=== PATIENT | female | born 1990 | race Hispanic/Latino ===

== ENCOUNTER 2024-02-28 18:10 | Emergency (ER) | payer MEDICAID ==
[~2024-02-28] VITALS: Ht 157.5 cm; Wt 71.7 kg
[2024-02-28 18:57] LABS: BASOPHILS # (AUTO) 0.07 K/uL (0.00-0.20); BASOPHILS % (AUTO) 0.5 % (0.0-5.0); EOSINOPHILS # (AUTO) 0.02 K/uL (0.00-0.70); EOSINOPHILS % (AUTO) 0.1 % (0.0-8.0); HEMATOCRIT 37.6 % (36-48); IMMATURE GRANULOCYTE ABSOLUTE 0.04 K/uL (0-1); LYMPHOCYTES # (AUTO) 1.1 K/uL (1.0-4.8); LYMPHOCYTES % (AUTO) 7.6 % (21.0-51.0); MEAN CORPUSCULAR HEMOGLOBIN 30.3 pg (27.0-33.0); MEAN CORPUSCULAR HGB CONC 34.3 g/dL (32.0-36.0); MEAN CORPUSCULAR VOLUME 88.3 fL (79-99); MONOCYTES # (AUTO) 0.7 K/uL (0.1-1.0); MONOCYTES % (AUTO) 5.3 % (3.0-13.0); NEUTROPHILS # (AUTO) 11.9 K/uL (1.8-7.7); NEUTROPHILS % (AUTO) 86.2 % (40.0-77.0); PLATELET COUNT (AUTO) 213 K/uL (130-400); RED BLOOD CELL COUNT(AUTO) 4.26 MIL/uL (4.00-5.50); RED CELL DISTRIBUTION WIDTH 11.9 % (11.0-15.5); WHITE BLOOD COUNT (AUTO) 13.9 K/uL (4.8-10.8)
[2024-02-28 19:07] LABS: CARBON DIOXIDE 25 mmol/L (21-32); CHLORIDE 104 mmol/L (101-111); CREATININE 0.7 mg/dL (0.5-1.0); GLOMERULAR FILTR. RATE CALC 119 mL/min (>90); GLUCOSE,RANDOM 99 mg/dL (70-105); POTASSIUM 3.7 mmol/L (3.5-5.1); SODIUM SERUM 139 mmol/L (136-145); UREA NITROGEN, BLOOD 9 mg/dL (7-18)
[2024-02-28 19:09] LABS: ALCOHOL, BLOOD < 3 mg/dL (0-10)
[2024-02-28] MEDS: LORAZEPAM 1 MG TABLET PO ONE (19:28)
[2024-02-28 19:29] LABS: INR 1.02 (0.85-1.15)
[2024-02-28 19:31] LABS: PARTIAL THROMBOPLASTIN TIME 24.5 SEC (26.3-35.5)
[2024-02-28 20:19] LABS: ADD UA MICROSCOPIC YES; APPEARANCE,URINE CLEAR (CLEAR); BILIRUBIN,URINE NEGATIVE (NEGATIVE); COLOR,URINE COLORLESS (YELLOW); GLUCOSE, URINE (UA) NEGATIVE (NEGATIVE); KETONES,URINE 10 mg/dL (NEGATIVE); LEUKOCYTE ESTERASE ,URINE NEGATIVE Leu/uL (NEGATIVE); NITRATE,URINE NEGATIVE (NEGATIVE); OCCULT BLOOD,URINE NEGATIVE (NEGATIVE); PH,URINE 6.5 (5.0-8.0); PROTEIN,URINE NEGATIVE (NEGATIVE); UROBILINOGEN,URINE 0.2 mg/dL (0.2-1.0)
[2024-02-28 20:21] LABS: BACTERIA,URINE RARE /HPF (None Seen); RBC,URINE 0-1 /HPF (0-1); SQUAMOUS EPITHELIAL CELL,UR FEW /HPF (0-2); WBC,URINE 0-1 /HPF (0-1)
[2024-02-28 20:29] LABS: AMPHET/METH SCREEN,URINE NEGATIVE (NEGATIVE); BARBITURATE SCREEN, URINE NEGATIVE (NEGATIVE); BENZODIAZEPINES SCREEN,URINE NEGATIVE (NEGATIVE); CANNABINOID SCREEN,URINE POSITIVE (NEGATIVE); COCAINE SCREEN,URINE NEGATIVE (NEGATIVE); OPIATE SCREEN,URINE NEGATIVE (NEGATIVE); PHENCYCLIDINE SCREEN,URINE NEGATIVE (NEGATIVE)
[2024-02-28] MEDS ORDERED: IOHEXOL 350 MG/ML 100ML INFUS..BTL IV ONE (20:44)
[2024-02-28 22:00] VITALS: BP 121/65; PULSE 81; RESP 18; O2SAT 99
== END 2024-02-28 22:02 | disposition home or self-care (01) ==
LOC: EEVIPCON 18:10 → EDH 18:10
DX: S80.11XA Contusion of right lower leg, initial encounter (principal); S10.93XA Contusion of unspecified part of neck, initial encounter; S20.219A Contusion of unspecified front wall of thorax, initial encounter; F32.A Depression, unspecified; E66.9 Obesity, unspecified; Z68.30 Body mass index [BMI] 30.0-30.9, adult; Y04.2XXA Assault by strike against or bumped into by another person, initial encounter; Y93.89 Activity, other specified; Y92.89 Other specified places as the place of occurrence of the external cause; Y99.8 Other external cause status
CPT/HCPCS: 99285; 70450; 84443; 80048; 80305; 84703; 85025; 85610; 85730; 36415; 73522; 70486; 70491; 93005; 81001; Q9967

== ENCOUNTER 2024-11-17 19:14 | Emergency (ER) | payer SELFPAY ==
[~2024-11-17] VITALS: Ht 157.5 cm; Wt 75.7 kg
[2024-11-17 19:44] LABS: APPEARANCE,URINE CLEAR (CLEAR); BILIRUBIN,URINE NEGATIVE (NEGATIVE); COLOR,URINE COLORLESS (YELLOW); GLUCOSE, URINE (UA) NEGATIVE (NEGATIVE); KETONES,URINE NEGATIVE (NEGATIVE); LEUKOCYTE ESTERASE ,URINE NEGATIVE Leu/uL (NEGATIVE); NITRATE,URINE NEGATIVE (NEGATIVE); OCCULT BLOOD,URINE SMALL (NEGATIVE); PROTEIN,URINE 30 mg/dL (NEGATIVE); UROBILINOGEN,URINE 0.2 mg/dL (0.2-1.0)
[2024-11-17 19:46] LABS: BACTERIA,URINE RARE /HPF (None Seen); HCG,QUALITATIVE URINE NEGATIVE (NEGATIVE); RBC,URINE 0-1 /HPF (0-1); SQUAMOUS EPITHELIAL CELL,UR RARE /HPF (0-2)
--- NOTE | 2024-11-17 19:47 | ERN ---
General Chief Complaint: Pelvic Pain Stated Complaint: C/O PELVIC PAIN TO LEFT SIDE Time Seen by MD: 19:16 Time Seen by Midlevel: 19:16 Source: patient History of Present Illness Initial Comments 34-year-old female who presents to the emergency department due to pelvic pain onset one week ago. Patient reports history of frequent UTIs, ectopic one year ago. She is currently finishing her menstrual cycle, negative test at home. Denies further associated symptoms. Denies any other significant past medical history. Allergies: Coded Allergies: No Known Allergies (Unverified Allergy, Unknown, 02/28/24) Past Medical History Past Medical History: UTI Medical History Other: PTSD Past Surgical History: Other Surgical History Other: RT OVARY AND FALLOPIAN TUBE REMOVAL Female( History) LMP: Nov 17, 2024 ROS Dictation Constitutional: Negative for fever,chills, and weight loss Eyes: Negative for injury, pain,redness, and discharge ENT: Negative for injury,pain or swelling Cardiovascular: Negative for chest pain, palpitations, and edema Respiratory: Negative for shortness of breath, cough, and wheezing, Abdomen/GI: Positive for left pelvic pain Negative for abdominal pain, nausea, vomiting, diarrhea, and constipation Back: Negative for injury and pain : Negative for painful urination, bleeding or discharge MS/Extremity: Negative for injury and deformity Skin: Negative for rash, and discoloration Neuro: Negative for headache, weakness, numbness, tingling, and seizure Psych: Negative for suicide ideation, homicidal ideation, and hallucinations Physical Exam Physical Exam Dictation General: awake, alert, no acute distress Head/Face: Normocephalic, atraumatic Eyes: PERRL, EOMI, normal conjunctiva ENT: oral cavity clear, oral mucosa moist Neck: Supple, normal range of motion Cardiovascular: RRR, normal S1/S2 Respiratory: CTAB, no respiratory distress, no rales or wheezes Abdomen: Soft, LLQ/suprapubic left mild tenderness, non-distended, normal bowel sounds, no guarding or rebound. Skin: Warm, dry, normal turgor, no rash MS/Extremity: Pulses equal, no cyanosis, neurovascular intact, FROM Neuro: COAx4, GCS 15, strength 5/5, CN 2-12 intact, normal cerebellar exam, normal gait Psych: Normal behavior, mood, and affect normal Results Laboratory and Microbiology Lab and Micro Result Laboratory Tests Test 11/17/24 19:25 11/17/24 20:18 Urine Color COLORLESS (YELLOW) Urine Appearance CLEAR (CLEAR) Urine pH 6.0 (5.0-8.0) Urine Specific [place] 1.002 (1.001-1.031) Urine Protein 30 mg/dL (NEGATIVE) H Urine Glucose (UA) NEGATIVE mg/dL (NEGATIVE) Urine Ketones NEGATIVE mg/dL (NEGATIVE) Urine Occult Blood SMALL (NEGATIVE) H Urine Nitrate NEGATIVE (NEGATIVE) Urine Bilirubin NEGATIVE mg/dL (NEGATIVE) Urine Urobilinogen 0.2 mg/dL (0.2-1.0) Urine Leukocyte Esterase NEGATIVE Timothy/uL Urine RBC 0-1 /HPF (0-1) Urine WBC 6-10 /HPF (0-1) H Urine Squamous Epithelial Cells RARE /HPF (0-2) Urine Bacteria RARE /HPF (None Seen) Urine HCG, Qualitative NEGATIVE (NEGATIVE) White Blood Count 12.0 K/uL (4.8-10.8) H Red Blood Count 4.44 MIL/uL (4.00-5.50) Hemoglobin 13.1 g/dL (12.0-16.0) Hematocrit 38.8 % (36-48) Mean Corpuscular Volume 87.4 fL (79-99) Mean Corpuscular Hemoglobin 29.5 pg (27.0-33.0) Mean Corpuscular Hemoglobin Concent 33.8 g/dL (32.0-36.0) Red Cell Distribution Width 11.9 % (11.0-15.5) Platelet Count 238 K/uL (130-400) Mean Platelet Volume 10.8 fL (7.5-10.5) H Immature Granulocyte % (Auto) 0.3 % (0-1) Neutrophils (%) (Auto) 61.7 % (40.0-77.0) Lymphocytes (%) (Auto) 26.7 % (21.0-51.0) Monocytes (%) (Auto) 6.9 % (3.0-13.0) Eosinophils (%) (Auto) 3.8 % (0.0-8.0) Basophils (%) (Auto) 0.6 % (0.0-5.0) Neutrophils # (Auto) 7.4 K/uL (1.8-7.7) Lymphocytes # (Auto) 3.2 K/uL (1.0-4.8) Monocytes # (Auto) 0.8 K/uL (0.1-1.0) Eosinophils # (Auto) 0.46 K/uL (0.00-0.70) Basophils # (Auto) 0.07 K/uL (0.00-0.20) Absolute Immature Granulocyte (auto 0.04 K/uL (0-1) Nucleated Red Blood Cells 0.0 % (0.0-0.19) Sodium Level 143 mmol/L (136-145) Potassium Level 3.8 mmol/L (3.5-5.1) Chloride Level 102 mmol/L (101-111) Carbon Dioxide Level 31 mmol/L (21-32) Blood Urea Nitrogen 8 mg/dL (7-18) Creatinine 0.6 mg/dL (0.5-1.0) Glomerular Filtration Rate Calc 122 mL/min (>90) Random Glucose 91 mg/dL (70-105) Total Calcium 9.6 mg/dL (8.5-10.1) Human Chorionic Gonadotropin, Quant 0 mIU/mL (0-5) Labs Reviewed?: Yes EKG/XRAY/US/CT/MRI Ultrasound Comment REASON: left sided pelvic pain ORDERING PHYSICIAN: DAMIAN SANTANA PROCEDURE: PELVCOMP - US PELVIC NON-OB COMP US PELVIC NON-OB COMP HISTORY: Left pelvic pain COMPARISON: None TECHNIQUE: Transabdominal pelvic ultrasound study was performed. FINDINGS: The uterus measures 8.3 x 5 x 4.5 cm. The right ovary measures 2.3 x 1.9 x 2.5 cm. The left ovary measures 2.6 x 1.7 x 2.6 cm. Flow is seen in both ovaries. Endometrial thickness is 3 mm No free fluid is seen in the cul-de-sac. IMPRESSION: 1. No adnexal mass is seen. DICTATED BY: JAKI RAMOS MD DATE: 11/17/241951 CT Scan Comment REASON: LLQ pain ORDERING PHYSICIAN: DAMIAN SANTANA PROCEDURE: ABD PEL W - CT ABDOMEN/PELVIS W/CONTRAST CT ABDOMEN/PELVIS W/CONTRAST HISTORY: Left lower abdominal pain COMPARISON: None TECHNIQUE: Multiple sequential axial images of the abdomen and pelvis were obtained from the dome of the diaphragm through symphysis pubis. Patient was given 100 cc of Omnipaque through intravenous route. Oral contrast was not given. FINDINGS: No pleural effusion is seen bilaterally. There is no evidence of parenchymal disease or pulmonary nodule of the visualized lower lungs. Degenerative changes of the thoracolumbar spine are present. The heart is not enlarged. Liver measures 17 cm. A small hiatal hernia is seen. The liver, spleen, adrenal glands and pancreas are unremarkable. There is no evidence of hydronephrosis bilaterally. If there is clinical suspicion for pyelonephritis, urinalysis correlation may be helpful. No evidence of renal stone is seen. Fecal material is seen in the colon. There are normal size retroperitoneal and mesenteric lymph nodes. No ascites is seen. No CT evidence of acute appendicitis is seen. Clinical correlation is recommended. There are bilateral ovarian follicles. Pelvic sidewalls are symmetric bilaterally. Bladder is well distended without wall thickening. IMPRESSION: 1. No acute findings. CT was performed with one or more following dose reduction techniques: automated exposure control, adjustment of the mA and kv according to patient's size, or use of a iterative reconstruction technique. DICTATED BY: JAKI RAMOS MD DATE: 11/17/242240 [facility] MDM: Differential diagnosis: Ectopic , , UTI, diverticulitis Rationale:34-year-old female who presents to the emergency department due to pelvic pain onset one week ago. Patient reports history of frequent UTIs, ec topic one year ago. She is currently finishing her menstrual cycle, negative test at home. Denies further associated symptoms. Denies any other significant past medical history. Per physical examination patient has mild tenderness to the left lower quadrant/suprapubic area. Labs obtained indicate elevated WBCs of 12, chemistry within normal limits, UA negative for urinary tract infection and negative . Pelvic ultrasound obtained with no masses, bilateral blood flow to both ovaries or acute abnormalities noted. CT abdomen and pelvis reports no acute findings. Patient received ketorolac in the ED and on re-examination verbalized pain had resolved. Patient was educated on findings and diagnosis. Advised to follow up with PCP. Return to the emergency department if any worsening symptoms. Patient verbalized understanding. Patient stable for discharge. There are no social concerns with this patient. I independently interpreted the test that were performed, results were reviewed by me and considered findings on radiology if ordered. Medical management and examination interpretation discussions were had by me with other qualified healthcare professionals as indicated for the patient's care. ED Course Orders Procedure Category Date Status Time Cbc With Differential LAB 11/17/24 Complete 19:21 Basic Metabolic Panel LAB 11/17/24 Complete 19:21 Urinalysis LAB 11/17/24 Complete W/Microscopic 19:21 Hcg,Quantitative LAB 11/17/24 Complete 19:21 Us Pelvic Non-Ob Comp US 11/17/24 Resulted 19:21 ,Urine Test LAB 11/17/24 Complete 19:21 Culture Urine JENNIE 11/17/24 Complete 20:01 Ketorolac PHA 11/17/24 Complete Tromethamine 15mg/Ml 21:00 Ct Abdomen/Pelvis CT 11/17/24 Resulted W/Contrast 21:29 Iohexol (Omnipaque) PHA 11/17/24 Complete 22:06 Current Medications Medications (Trade) Dose Ordered Sig/Quin Route PRN Reason Start Time Stop Time Status Last Admin Dose Admin Iohexol (Omnipaque) 35,000 mg STK-MED ONCE IV 11/17/24 22:06 11/17/24 22:07 DC Ketorolac Tromethamine (toRADol) 15 mg ONCE ONCE IM 11/17/24 21:00 11/17/24 21:01 DC 11/17/24 21:28 Vital Signs Date Time Temp Pulse Resp B/P (MAP) Pulse Ox O2 Delivery O2 Flow Rate FiO2 11/17/24 23:06 97.9 76 18 119/82 97 Room Air* 0 21 11/17/24 21:01 98.2 78 20 142/86 98 Room Air* 0 21 11/17/24 19:16 98.2 78 20 142/86 98 Room Air DX & DISP Disposition: Discharge Departure Impression: Primary Impression: Pelvic pain Condition: Stable Additional Instructions: Discharge home. Rest. Follow up with primary care in 24 hours. Return to the ER for any acute changes or worsening symptoms. If any medications were prescribed take as directed. Okay to continue home medications unless otherwise discussed during your visit in the emergency room today. Patient was also advised to follow-up with primary care physician in 1 to 2 days for continued monitoring. Referrals: SELF,REFERRAL (PCP) I performed the substantive portion of the visit. I have reviewed and personally made and approve the management plan that is documented in the notes by myself or the [facility]. I acknowledge full responsibility for the patient's management plan. DAMIAN SANTANA Nov 17, 2024 19:47
--- NOTE | 2024-11-17 20:02 | HMCIMG ---
US PELVIC NON-OB COMP HISTORY: Left pelvic pain COMPARISON: None TECHNIQUE: Transabdominal pelvic ultrasound study was performed. FINDINGS: The uterus measures 8.3 x 5 x 4.5 cm. The right ovary measures 2.3 x 1.9 x 2.5 cm. The left ovary measures 2.6 x 1.7 x 2.6 cm. Flow is seen in both ovaries. Endometrial thickness is 3 mm No free fluid is seen in the cul-de-sac. IMPRESSION: 1. No adnexal mass is seen.
[2024-11-17 20:52] LABS: BASOPHILS # (AUTO) 0.07 K/uL (0.00-0.20); BASOPHILS % (AUTO) 0.6 % (0.0-5.0); EOSINOPHILS # (AUTO) 0.46 K/uL (0.00-0.70); EOSINOPHILS % (AUTO) 3.8 % (0.0-8.0); HEMATOCRIT 38.8 % (36-48); IMMATURE GRANULOCYTE ABSOLUTE 0.04 K/uL (0-1); LYMPHOCYTES # (AUTO) 3.2 K/uL (1.0-4.8); LYMPHOCYTES % (AUTO) 26.7 % (21.0-51.0); MEAN CORPUSCULAR HEMOGLOBIN 29.5 pg (27.0-33.0); MEAN CORPUSCULAR HGB CONC 33.8 g/dL (32.0-36.0); MEAN CORPUSCULAR VOLUME 87.4 fL (79-99); MONOCYTES # (AUTO) 0.8 K/uL (0.1-1.0); MONOCYTES % (AUTO) 6.9 % (3.0-13.0); NEUTROPHILS # (AUTO) 7.4 K/uL (1.8-7.7); NEUTROPHILS % (AUTO) 61.7 % (40.0-77.0); PLATELET COUNT (AUTO) 238 K/uL (130-400); RED BLOOD CELL COUNT(AUTO) 4.44 MIL/uL (4.00-5.50); RED CELL DISTRIBUTION WIDTH 11.9 % (11.0-15.5)
[2024-11-17 20:59] LABS: CREATININE 0.6 mg/dL (0.5-1.0); POTASSIUM 3.8 mmol/L (3.5-5.1)
[2024-11-17] MEDS: ketOROlac 15MG/ML VIAL (15MG/ML) IM ONE (21:28)
[2024-11-17] MEDS ORDERED: IOHEXOL 350 MG/ML 100ML INFUS..BTL IV ONE (22:06)
--- NOTE | 2024-11-17 22:48 | HMCIMG ---
CT ABDOMEN/PELVIS W/CONTRAST HISTORY: Left lower abdominal pain COMPARISON: None TECHNIQUE: Multiple sequential axial images of the abdomen and pelvis were obtained from the dome of the diaphragm through symphysis pubis. Patient was given 100 cc of Omnipaque through intravenous route. Oral contrast was not given. FINDINGS: No pleural effusion is seen bilaterally. There is no evidence of parenchymal disease or pulmonary nodule of the visualized lower lungs. Degenerative changes of the thoracolumbar spine are present. The heart is not enlarged. Liver measures 17 cm. A small hiatal hernia is seen. The liver, spleen, adrenal glands and pancreas are unremarkable. There is no evidence of hydronephrosis bilaterally. If there is clinical suspicion for pyelonephritis, urinalysis correlation may be helpful. No evidence of renal stone is seen. Fecal material is seen in the colon. There are normal size retroperitoneal and mesenteric lymph nodes. No ascites is seen. No CT evidence of acute appendicitis is seen. Clinical correlation is recommended. There are bilateral ovarian follicles. Pelvic sidewalls are symmetric bilaterally. Bladder is well distended without wall thickening. IMPRESSION: 1. No acute findings. CT was performed with one or more following dose reduction techniques: automated exposure control, adjustment of the mA and kv according to patient's size, or use of a iterative reconstruction technique.
[2024-11-17 23:06] VITALS: BP 119/82; PULSE 76; RESP 18; TEMP 97.9; O2SAT 97
== END 2024-11-17 23:10 | disposition home or self-care (01) ==
LOC: EDH 19:14
DX: R10.2 Pelvic and perineal pain (principal)
CPT/HCPCS: 99285; 74177; 76856; 80048; 84702; 85025; 87086 ×2; 87186; 81001; 81025; 36415; 96372; J1885; Q9967

== ENCOUNTER 2024-12-23 10:21 | Emergency (ER) | payer MEDICAID ==
[~2024-12-23] VITALS: Ht 157.5 cm; Wt 79.8 kg
[2024-12-23 10:54] LABS: BASOPHILS # (AUTO) 0.05 K/uL (0.00-0.20); BASOPHILS % (AUTO) 0.6 % (0.0-5.0); EOSINOPHILS # (AUTO) 0.29 K/uL (0.00-0.70); EOSINOPHILS % (AUTO) 3.6 % (0.0-8.0); HEMATOCRIT 38.1 % (36-48); IMMATURE GRANULOCYTE ABSOLUTE 0.03 K/uL (0-1); LYMPHOCYTES # (AUTO) 2.1 K/uL (1.0-4.8); LYMPHOCYTES % (AUTO) 26.2 % (21.0-51.0); MEAN CORPUSCULAR HEMOGLOBIN 30.3 pg (27.0-33.0); MEAN CORPUSCULAR HGB CONC 33.9 g/dL (32.0-36.0); MEAN CORPUSCULAR VOLUME 89.4 fL (79-99); MONOCYTES # (AUTO) 0.6 K/uL (0.1-1.0); MONOCYTES % (AUTO) 7.9 % (3.0-13.0); NEUTROPHILS # (AUTO) 4.9 K/uL (1.8-7.7); NEUTROPHILS % (AUTO) 61.3 % (40.0-77.0); PLATELET COUNT (AUTO) 228 K/uL (130-400); RED BLOOD CELL COUNT(AUTO) 4.26 MIL/uL (4.00-5.50); RED CELL DISTRIBUTION WIDTH 12.1 % (11.0-15.5); WHITE BLOOD COUNT (AUTO) 8.1 K/uL (4.8-10.8)
[2024-12-23 11:02] LABS: CREATININE 0.7 mg/dL (0.5-1.0); POTASSIUM 3.9 mmol/L (3.5-5.1)
[2024-12-23 11:10] LABS: APPEARANCE,URINE CLEAR (CLEAR); BILIRUBIN,URINE NEGATIVE (NEGATIVE); COLOR,URINE COLORLESS (YELLOW); GLUCOSE, URINE (UA) NEGATIVE (NEGATIVE); KETONES,URINE NEGATIVE (NEGATIVE); LEUKOCYTE ESTERASE ,URINE NEGATIVE Leu/uL (NEGATIVE); NITRATE,URINE NEGATIVE (NEGATIVE); OCCULT BLOOD,URINE NEGATIVE (NEGATIVE); PH,URINE 7.5 (5.0-8.0); PROTEIN,URINE NEGATIVE (NEGATIVE); UROBILINOGEN,URINE 0.2 mg/dL (0.2-1.0)
--- NOTE | 2024-12-23 11:10 | ERN ---
General Chief Complaint: Test Stated Complaint: 6 WEEKS GESTATIONS WANTS PREGANCY CHECK Time Seen by MD: 10:24 Time Seen by Midlevel: 10:24 Source: patient History of Present Illness Initial Comments The patient is a 34-year-old female with a past medical history of an ectopic presenting to the emergency department to rule out an ectopic . The patient had a positive test four days ago. She was seen at a local clinic who performed an ultrasound. Today she was called and told to report to the emergency department because they received the ultrasound reports and they noted no IUP. They were concerned that this may be an ectopic so they recommended she report to the ER for further evaluation. They calculated an estimated gestational age of 11 weeks based on her last menstrual cycle however on arrival with the patient states she feels she is way earlier in her around six weeks. On arrival she reports some mild cramping which she attributes is normal but specifically denies any vaginal bleeding, dysuria, hematuria, or any other symptoms at this time. Allergies: Coded Allergies: No Known Allergies (Unverified Allergy, Unknown, 02/28/24) Past Medical History Past Medical History: UTI Medical History Other: PTSD Past Surgical History: Other Surgical History Other: RT OVARY AND FALLOPIAN TUBE REMOVAL ROS Dictation CONSTITUTIONAL: Negative except for HPI HEAD/FACE: Negative except for HPI EENT: Negative except for HPI RESPIRATORY: Negative except for HPI GASTROINTESTINAL/ABDOMINAL: Negative except for HPI GENITOURINARY: Negative except for HPI MUSCULOSKELETAL: Negative except for HPI INTEGUMENTARY: Negative except for HPI NEUROLOGICAL/PSYCH: Negative except for HPI HEMATOLOGIC/LYMPHATIC: Negative except for HPI All Systems Negative, Except as noted above. 13 point review of systems assessed and all negative except for above. Physical Exam Physical Exam Dictation Vital Signs reviewed General Appearance: Alert, oriented x 3, no acute distress, well developed, nourished. Head and Face: non-traumatic. Eyes: PERRL, pink conjunctivas, eyelid no trauma, anterior chamber with arcus senilis. Ears: Pinnas intact and no signs of trauma or erythema ear canals clear and no discharge TM no erythema Nose: No discharge, no bleeding. Oropharynx: Mouth normal, tongue pink, pharynx clear,no erythema, tonsils no exudates, no abscesses noted, mucous membrane moist Neck: Supple, non-tender, no thyromegaly, no masses, no JVD, no bruits Breast:Deferred Chest:No tenderness, no crepitus, no paradoxical movement, no retractions Lungs:Clear, well-ventilated, symmetric, no rales, no wheezing, no rhonchi, no stridor, good breath sounds bilaterally Heart: Regular rate, regular rhythm, no murmur, no gallops Vascular: no peripheral edema, Abdomen: Soft, positive bowel sounds, nondistended, no guarding, nontender, no rebound, no masses no hepatomegaly, no splenomegaly, no Bolaños's sign, no hernias. Rectal: Deferred Genital: Deferred Neurological: Normal speech, motor function intact, sensory function intact Musculoskeletal: Neck nontender, full range of motion, back nontender, full range of motion, Extremities: nontender, full range of motion Skin: Color pink, dry, no turgor, no rash, no lacerations, no abrasions, no contusions. Lymphatic: Deferred Results Laboratory and Microbiology Lab and Micro Result Laboratory Tests Test 12/23/24 10:49 12/23/24 10:59 White Blood Count 8.1 K/uL (4.8-10.8) Red Blood Count 4.26 MIL/uL (4.00-5.50) Hemoglobin 12.9 g/dL (12.0-16.0) Hematocrit 38.1 % (36-48) Mean Corpuscular Volume 89.4 fL (79-99) Mean Corpuscular Hemoglobin 30.3 pg (27.0-33.0) Mean Corpuscular Hemoglobin Concent 33.9 g/dL (32.0-36.0) Red Cell Distribution Width 12.1 % (11.0-15.5) Platelet Count 228 K/uL (130-400) Mean Platelet Volume 10.4 fL (7.5-10.5) Immature Granulocyte % (Auto) 0.4 % (0-1) Neutrophils (%) (Auto) 61.3 % (40.0-77.0) Lymphocytes (%) (Auto) 26.2 % (21.0-51.0) Monocytes (%) (Auto) 7.9 % (3.0-13.0) Eosinophils (%) (Auto) 3.6 % (0.0-8.0) Basophils (%) (Auto) 0.6 % (0.0-5.0) Neutrophils # (Auto) 4.9 K/uL (1.8-7.7) Lymphocytes # (Auto) 2.1 K/uL (1.0-4.8) Monocytes # (Auto) 0.6 K/uL (0.1-1.0) Eosinophils # (Auto) 0.29 K/uL (0.00-0.70) Basophils # (Auto) 0.05 K/uL (0.00-0.20) Absolute Immature Granulocyte (auto 0.03 K/uL (0-1) Nucleated Red Blood Cells 0.0 % (0.0-0.19) Sodium Level 137 mmol/L (136-145) Potassium Level 3.9 mmol/L (3.5-5.1) Chloride Level 104 mmol/L (101-111) Carbon Dioxide Level 29 mmol/L (21-32) Blood Urea Nitrogen 8 mg/dL (7-18) Creatinine 0.7 mg/dL (0.5-1.0) Glomerular Filtration Rate Calc 118 mL/min (>90) Random Glucose 102 mg/dL (70-105) Total Calcium 9.1 mg/dL (8.5-10.1) Human Chorionic Gonadotropin, Quant 1860 mIU/mL (0-5) H Urine Color COLORLESS (YELLOW) Urine Appearance CLEAR (CLEAR) Urine pH 7.5 (5.0-8.0) Urine Specific [place] 1.004 (1.001-1.031) Urine Protein NEGATIVE mg/dL (NEGATIVE) Urine Glucose (UA) NEGATIVE mg/dL (NEGATIVE) Urine Ketones NEGATIVE mg/dL (NEGATIVE) Urine Occult Blood NEGATIVE (NEGATIVE) Urine Nitrate NEGATIVE (NEGATIVE) Urine Bilirubin NEGATIVE mg/dL (NEGATIVE) Urine Urobilinogen 0.2 mg/dL (0.2-1.0) Urine Leukocyte Esterase NEGATIVE Timothy/uL Labs Reviewed?: Yes MDM MDM: The patient is a 34-year-old female with a past medical history of an ectopic presenting to the emergency department to rule out an ectopic . The patient had a positive test four days ago. She was seen at a local clinic who performed an ultrasound. Today she was called and told to report to the emergency department because they received the ultrasound reports and they noted no IUP. They were concerned that this may be an ectopic so they recommended she report to the ER for further evaluation. They calculated an estimated gestational age of 11 weeks based on her last menstrual cycle however on arrival with the patient states she feels she is way earlier in her around six weeks. On arrival she reports some mild cramping which she attributes is normal but specifically denies any vaginal bleeding, dysuria, hematuria, or any other symptoms at this time. Differential diagnosis: Ectopic , early , threatened There are no social concerns with this patient. Prescription drug management Prescriptions will include: None Medical management and examination interpretation discussions were had by me with other qualified healthcare professionals as indicated for the patient's care. ED Course Orders Procedure Category Date Status Time Cbc With Differential LAB 12/23/24 Complete 10: Basic Metabolic Panel LAB 12/23/24 Complete 10: Hcg,Quantitative LAB 12/23/24 Complete 10:28 Urinalysis Profile LAB 12/23/24 Complete 10:28 Us Ob <14 Weeks US 12/23/24 Resulted 10: Vital Signs Date Time Temp Pulse Resp B/P (MAP) Pulse Ox O2 Delivery O2 Flow Rate FiO2 12/23/24 10:23 98.2 91 16 137/75 98 Room Air [place] [address] [place] [id number] IMAGING REPORT Signed PATIENT: JESUS MAHER MR#: [id number] : 1990 SEX: F AGE: 34 LOCATION: [facility] ORDER 1029 STATUS: REG ER REPORT#: [id number] SERVICE 1028 REASON: positive pregancy test on friday ORDERING PHYSICIAN: JOVANNI MARTINEZ PROCEDURE: OB <14 - US OB <14 WEEKS Exam Type: US OB <14 WEEKS Clinical Information: positive pregancy test on friday Comparison: None FINDINGS: No intrauterine gestational sac is seen. No embryonic pole or yolk sac seen at this time. The uterus is anteverted with normal shape. It measures 12 x 5 x 5.9 cm in its maximum length, anteroposterior and transverse dimensions. The myometrium is homogeneous and there is no evidence of focal or diffuse lesions. Both ovaries appear normal with normal flow on color and Spectral Doppler. The right ovary measures 2.7 x 2 x 2.2 cm and the left ovary measures 2.8 x 1.8 x 3.2 cm. No adnexal masses. No free fluid or collections. Urinary bladder appears normal. IMPRESSION: No intrauterine or ectopic seen at this time. Consider short-term follow-up to confirm viability. DICTATED BY: RADHA BERMUDEZ MD DATE: 12/23/24 111 ELECTRONICALLY SIGNED BY: RADHA BERMUDEZ MD DATE: 12/23/24 111 DX & DISP Disposition: Discharge Departure Impression: Primary Impression: Positive test Condition: Stable Additional Instructions: Your blood work today is unremarkable. Your urinalysis does not show any evidence of infection. Your hCG quant level is 1860. Your pelvic ultrasound reveals no intrauterine or ectopic at this time. This may be related to an early . You will need a repeat hCG quant test and a repeat ultrasound in one week for further evaluation. Follow up with your OBGYN as scheduled. You may return to the emergency department if you develop any new or worsening symptoms. Referrals: SELF,REFERRAL (PCP) Time of Disposition: 11:45 I have reviewed the case, and I agree with, Diagnosis and Plan I performed the substantive portion of the visit. I have reviewed and personally made and approve the management plan that is documented in the note by myself or the [facility]. I acknowledge for responsibility for the patient's management plan. JOVANNI MARTINEZ December 23, 2024 11:10
[2024-12-23 11:13] LABS: ADD UA MICROSCOPIC NO
--- NOTE | 2024-12-23 11:18 | HMCIMG ---
Exam Type: US OB <14 WEEKS Clinical Information: positive pregancy test on friday Comparison: None FINDINGS: No intrauterine gestational sac is seen. No embryonic pole or yolk sac seen at this time. The uterus is anteverted with normal shape. It measures 12 x 5 x 5.9 cm in its maximum length, anteroposterior and transverse dimensions. The myometrium is homogeneous and there is no evidence of focal or diffuse lesions. Both ovaries appear normal with normal flow on color and Spectral Doppler. The right ovary measures 2.7 x 2 x 2.2 cm and the left ovary measures 2.8 x 1.8 x 3.2 cm. No adnexal masses. No free fluid or collections. Urinary bladder appears normal. IMPRESSION: No intrauterine or ectopic seen at this time. Consider short-term follow-up to confirm viability.
[2024-12-23 12:03] VITALS: BP 115/73; PULSE 88; RESP 18; TEMP 98; O2SAT 99
== END 2024-12-23 12:05 | disposition home or self-care (01) ==
LOC: EDH 10:21
DX: Z32.01 Encounter for pregnancy test, result positive (principal); R10.2 Pelvic and perineal pain; Z3A.11 11 weeks gestation of pregnancy; Z87.440 Personal history of urinary (tract) infections; Z98.890 Other specified postprocedural states
CPT/HCPCS: 36415; 76801; 80048; 81003; 84702; 85025; 99284